=== PATIENT | male | born 1955 | race Caucasian/White ===

== ENCOUNTER 2018-05-11 18:39 | Emergency (ER) | payer OTHER ==
[~2018-05-11] VITALS: Ht 165.1 cm; Wt 80.3 kg
[2018-05-11 18:53] VITALS: Ht 165.1 cm; Wt 80.3 kg
[2018-05-11 21:06] LABS: BASOPHIL % 0.7 % (0-2); PLATELET COUNT 160 x10^3mcL (130-400); RED CELL DISTRIBUTION WIDTH 13.4 % (11.5-14.5)
[2018-05-11 22:02] LABS: CALCIUM 10.1 mg/dL (8.5-10.1); CARBON DIOXIDE 29.9 mmol/L (21-32); CHLORIDE SERUM 97 mmol/L (98-107); GFR1 > 60 mL/min; GLUCOSE SERUM 111 mg/dL (74-106); POTASSIUM SERUM 3.7 mmol/L (3.5-5.1); SODIUM SERUM 137 mmol/L (136-145)
[2018-05-11 22:06] LABS: ALBUMIN 4.8 g/dL (3.4-5.0); ALKALINE PHOSPHATASE 62 U/L (46-116); ALT/SGPT 144 U/L (16-63); AST/SGOT 68 U/L (15-37); BILIRUBIN TOTAL 1.4 mg/dL (0.20-1.00)
[2018-05-11 22:07] LABS: TOTAL PROTEIN, SERUM 8.8 g/dL (6.4-8.2)
[2018-05-11 22:29] VITALS: BP 142/58
== END 2018-05-11 22:29 | disposition home or self-care (01) ==
LOC: ED 18:39
PROVIDERS: Emergency Medicine
DX: S29.8XXA Other specified injuries of thorax, initial encounter (principal); I10 Essential (primary) hypertension; X58.XXXA Exposure to other specified factors, initial encounter; Y93.89 Activity, other specified; Y92.89 Other specified places as the place of occurrence of the external cause; Y99.8 Other external cause status
CPT/HCPCS: 36415